=== PATIENT | male | born 1985 | race Caucasian/White ===

== ENCOUNTER 2020-08-28 08:13 | Emergency (ER) | payer SELFPAY ==
[~2020-08-28] VITALS: Ht 172.7 cm; Wt 122.5 kg
[2020-08-28 08:17] VITALS: BP 131/71
--- NOTE | 2020-08-28 08:26 | NUR ---
PATIENT AMBULATED TO BED 6.
--- NOTE | 2020-08-28 08:31 | NUR ---
DR. DAVIS AT BEDSIDE EVALUATING PATIENT.
--- NOTE | 2020-08-28 08:38 | NUR ---
35 y/o male c/o neck pain 9 with palpation and movement of neck X1 week. Pt states present for 1 year and a half, but in the last week has grown. Pt states he went to [facility] and was told it was a cyst, had it cleaned, and prescribed abx. No relief since Tuesday. No PMH, RX, NKA
--- NOTE | 2020-08-28 08:39 | NUR ---
Dr. Can at bedside with [facility].
[2020-08-28 09:09] VITALS: BP 118/68
--- NOTE | 2020-08-28 09:09 | NUR ---
Patient discharged with v/s stable. Written and verbal after care instructions given and explained. Patient verbalized understanding. Ambulatory with steady gait. All questions addressed prior to discharge. Advised to follow up with PMD.
== END 2020-08-28 09:09 | disposition home or self-care (01) ==
LOC: MED 08:13
DX: G96.191 Perineural cyst (principal); E66.9 Obesity, unspecified
CPT/HCPCS: 99284